=== PATIENT | male | born 1980 | race African-American/Black ===

== ENCOUNTER 2023-07-19 14:44 | Inpatient (IN) | payer MEDICAID ==
[~2023-07-19] VITALS: Ht 190.5 cm; Wt 94.5 kg
[2023-07-19 15:33] LABS: BASOPHILS # (AUTO) 0.1 X10'3 (0-0.2); BASOPHILS % (AUTO) 0.9 % (0-1); EOSINOPHILS # (AUTO) 0.1 X10'3 (0-0.9); EOSINOPHILS % (AUTO) 1.5 % (0-6); HEMATOCRIT 49.4 % (42.0-52.0); HEMOGLOBIN 16.6 g/dl (14.0-17.9); LYMPHOCYTES # (AUTO) 2.6 X10'3 (1.1-4.8); LYMPHOCYTES % (AUTO) 30.9 % (21-51); MEAN CORPUSCULAR HEMOGLOBIN 32.5 PG (27.0-31.0); MEAN CORPUSCULAR HGB CONC 33.7 g/dL (33.0-36.5); MEAN CORPUSCULAR VOLUME 96.7 FL (78-98); MEAN PLATELET VOLUME 10.3 FL (7.4-10.4); MONOCYTES # (AUTO) 0.8 X10'3 (0-0.9); MONOCYTES % (AUTO) 9.6 % (2-12); NEUTROPHILS # (AUTO) 4.8 X10'3 (1.8-7.7); NEUTROPHILS % (AUTO) 57.1 % (42-75); PLATELET COUNT 242 X10'3 (140-440); RED BLOOD COUNT 5.11 X10'6 (4.70-6.10); WHITE BLOOD COUNT 8.4 X10'3 (4.5-11.0)
[2023-07-19 15:52] LABS: ALANINE AMINOTRANSFERASE 34 U/L (12-78); ALBUMIN 4.1 G/DL (3.4-5.0); ALKALINE PHOSPHATASE 93 IU/L (46-116); ANION GAP 6 (8-16); ASPARTATE AMINO TRANSFERASE 35 U/L (10-37); BLOOD UREA NITROGEN 13 MG/DL (7-18); CALCIUM 9.5 MG/DL (8.5-10.1); CHLORIDE 104 MMOL/L (99-107); GLUCOSE 92 MG/DL (70-104); SODIUM 138 MMOL/L (135-145); TOTAL CARBON DIOXIDE 27.9 MMOL/L (24-32); TOTAL PROTEIN 8.1 G/DL (6.4-8.2); eCRCL 90 ML/MIN; eGFR 61 ML/MIN
[2023-07-19 16:00] LABS: ETHANOL < 10 MG/DL (<10); THYROID STIMULATING HORMONE 0.76 ulU/ml (0.34-4.50)
--- NOTE | 2023-07-19 17:05 | NUR ---
pt is back in the lobby
[2023-07-19] MEDS ORDERED: normal saline 1000ml 1,000 ML IV ONE (18:15)
[2023-07-19] MEDS ORDERED: normal saline 1000ML IV soln IVB ONE (18:35)
[2023-07-19] MEDS ORDERED: LORazepam 2 mg/ml vial IV ONE (18:35)
--- NOTE | 2023-07-19 20:00 | NUR ---
Pt transfered from bed 6 to bed 20 in EDOF. Pt arrived sedated with an IV. Site in right arm patent, CDI, without reddness. IV of NS is flowing wide open and to be discontinued when finished.
--- NOTE | 2023-07-19 21:00 | NUR ---
IV of NS finished. Pt asleep, RR even and non labored. Pt in no distress. Monitor for safety. Addendum: 07/20/23 at 0546 by IVANA IV removed with catheter intact.
--- NOTE | 2023-07-19 22:59 | NUR ---
Pt asleep, in no distress. Monitor for safety.
--- NOTE | 2023-07-20 00:06 | NUR ---
Pt is asleep on his left side. RR even and unlabored. Pt in no distress, monitor for safety.
--- NOTE | 2023-07-20 01:59 | NUR ---
Pt asleep, in no distress. Monitor for safety.
--- NOTE | 2023-07-20 04:00 | NUR ---
Pt asleep, in no distress. Monitor for safety.
--- NOTE | 2023-07-20 05:47 | NUR ---
Pt asleep, RR even and pt in NAD
--- NOTE | 2023-07-20 07:01 | NUR ---
Patient sleeping supine. No distress observed. Continue to monitor.
--- NOTE | 2023-07-20 08:20 | NUR ---
Patient's breakfast at bedside. Patient continues to sleep. No distress observed. Continue to monitor.
--- NOTE | 2023-07-20 10:11 | NUR ---
Patient eating his breakfast. No distress observed. Continue to monitor.
--- NOTE | 2023-07-20 12:25 | NUR ---
Lunch at bedside. Patient continues to sleep. No distress observed. Continue to monitor.
--- NOTE | 2023-07-20 13:00 | NUR ---
RN spoke to patient who stated he is feeling suicidal. Patient would not give details but reiterated that he was feeling suicidal. Continue to monitor.
[2023-07-20 13:25] LABS: URINE AMPHETAMINE SCREEN POSITIVE (Neg); URINE BARBITUATE SCREEN NEGATIVE (Neg); URINE BENZODIAZEPINES SCREEN NEGATIVE (Neg); URINE CANNABINOID SCREEN NEGATIVE (Neg); URINE COCAINE SCREEN NEGATIVE (Neg); URINE METHADONE SCREEN NEGATIVE (Neg); URINE OPIATE SCREEN NEGATIVE (Neg); URINE PHENCYCLIDINE SCREEN NEGATIVE (Neg)
--- NOTE | 2023-07-20 13:36 | NUR ---
[facility]ACK[facility] FAXED .
--- NOTE | 2023-07-20 13:50 | NUR ---
ELIDA, Kalie, evaluating patient. No distress observed. Continue to monitor.
--- NOTE | 2023-07-20 19:19 | NUR ---
The patient has been quietly laying on his bed. He did answer questions but did not open his eyes or change his position in bed. He did endorse suicidal thoughts. He stated that he has been hospitalized several times in the past for anxiety/depression. He stated that he was aware that he is on a 5150 hold and that he would be transferred to the mental health unit in the morning. He denies auditory hallucinations. When asked about paranoia he hesitated then stated "no I just feel anxious"
--- NOTE | 2023-07-20 21:00 | NUR ---
The patient appears to be sleeping
--- NOTE | 2023-07-20 23:00 | NUR ---
The patient appears to be sleeping
--- NOTE | 2023-07-21 00:56 | NUR ---
The patient appears to be sleeping
--- NOTE | 2023-07-21 02:23 | NUR ---
The patient appears to be sleeping
--- NOTE | 2023-07-21 02:28 | NUR ---
The patient appears to be sleeping
--- NOTE | 2023-07-21 05:46 | NUR ---
The patient appears to be sleeping
--- NOTE | 2023-07-21 07:03 | NUR ---
received Pt in bed sleeping w/o distress at the beginning of this shift. Will continue to monitor.
--- NOTE | 2023-07-21 07:42 | NUR ---
SPOKE WITH SHARON AT [facility], THEY ARE AWARE [facility] HAS ACCEPTED PATIENT. JODY AT [facility] GAVE PREMISSION TO PLACE PATIENT AT [facility].
--- NOTE | 2023-07-21 09:04 | NUR ---
Pt woke and ate breakfast and used bathroom. He returned to bed where he appears to be sleeping.
--- NOTE | 2023-07-21 11:12 | NUR ---
Pt appears to be sleeping w/o difficulty at this time.
--- NOTE | 2023-07-21 13:18 | NUR ---
Pt woke and ate lunch. When spoken to, he was polite. This RN explained that he was accepted to [facility], but staffing is preventing his admission for a bit. Pt appreciative of explanation and returned to resting/sleeping.
--- NOTE | 2023-07-21 15:25 | NUR ---
Pt awake in bed and reporting he is not having MH issues anymore and discussed with this RN the 5150 hold time frames and process. Pt remains accepted at [facility] and awaits transfer.
--- NOTE | 2023-07-21 17:34 | NUR ---
Pt awake and pleasant and eating dinner at this time. Pt reports that "[place] is interesting but not for me". He wants to return to [place].
--- NOTE | 2023-07-21 18:59 | NUR ---
The patient is awake and watching TV. He is pleasant and calm. He stated he is feeling better. He denies that he is suicidal. He denies anxiety. He stated that he would like to be discharged to return to [place]. He is aware that he is on a 5150. Physical problems denied. He denies psychosis/paranoia.
--- NOTE | 2023-07-21 19:04 | NUR ---
Spoke with [facility] charge and they are not yet able to confirm the patient will be transferred this evening. The patient is aware.
--- NOTE | 2023-07-21 20:47 | NUR ---
The patient is watching TV.
--- NOTE | 2023-07-21 23:08 | NUR ---
The patient appears to be sleeping
--- NOTE | 2023-07-22 00:55 | NUR ---
The patient appears to be sleeping
--- NOTE | 2023-07-22 03:06 | NUR ---
The patient appears to be sleeping but restless at times
--- NOTE | 2023-07-22 05:01 | NUR ---
The patient appears to be sleeping
--- NOTE | 2023-07-22 07:25 | NUR ---
RECEIVED REPORT. PT SLEEPING, EVEN RESPS, IN NAD.
--- NOTE | 2023-07-22 09:17 | NUR ---
PT WENT TO FLOOR ESCORTED BY KRISTIN ALLAN AND . PT WAS CALM AND COOPERATIVE THROUGHOUT MY INTERACTION WITH HIM. PT ATE 100% OF AM MEAL.
[2023-07-22] MEDS ORDERED: magnesium hydroxide 30ml (MOM) UD suspension PO PRN (09:40)
[2023-07-22] MEDS ORDERED: NICOTINE POLACRILEX 2 MG LOZENGE BC PRN (09:40)
[2023-07-22] MEDS: nicotine 7mg patch - 24hr TD SCH (09:40)
[2023-07-22] MEDS ORDERED: loperamide 2mg capsule PO PRN (09:40)
[2023-07-22] MEDS ORDERED: mag hydrox/Alum hydrox/simeth 30ml oral suspension PO PRN (09:40)
[2023-07-22] MEDS ORDERED: acetaminophen 325mg tablet PO PRN ×2 (09:40)
[2023-07-22 09:43] VITALS: BP 115/76; PULSE 87; RESP 12; TEMP 98; O2SAT 98
[2023-07-22 10:00] VITALS: RESP 12; O2SAT 98
--- NOTE | 2023-07-22 11:40 | NUR ---
Admit note: Pt admitted to [facility] today on 5150 for DTS from our ER at 0920. Pt reports feeling "Overwhelmed, anxious, upset" and reports has a plan for suicide "I dont like saying it out loud." He's not willing to safety plan. Pt has history of depression and anxiety. Addendum: 07/22/23 at 1500 by Leslee Evans RN Pt. presents as very fatigued with a blunted affect and naps throughout the shift. He was cooperative with the admission process, however proceeded to lay with his eyes closed responding with mostly yes/no answers to direct questions only. Pt. reports S/I, but denies any current plan. He is able to contract for safety while on the unit and scores as a moderate risk on the [place] Suicide Risk Assessment, this was endorsed to YENY Ricks and [place] 15min safety checks were ordered. Pt. does report a history of an overdose attempt when he was [age] years of age and a family history of his uncle committing suicide.
[2023-07-22] MEDS ORDERED: NO HOME MEDS (11:49)
[2023-07-22 19:00] VITALS: RESP 14; O2SAT 98
[2023-07-22 20:00] VITALS: BP 103/65; PULSE 75; RESP 14; TEMP 98; O2SAT 98
[2023-07-22] MEDS ORDERED: hydrOXYzine 25 MG tablet PO PRN (21:05)
[2023-07-22] MEDS: prazosin 1mg capsule PO SCH (21:06)
--- NOTE | 2023-07-23 03:51 | NUR ---
NURSING PROGRESS NOTE: Problem: Pt admitted to [facility] today on 5150 for DTS from our ER at 0920. Pt reports feeling "Overwhelmed, anxious, upset" and reports has a plan for suicide "I dont like saying it out loud." He's not willing to safety plan. Pt has history of depression and anxiety. Response: Pt. received sleeping in bed at change of shift. He slept through evening snack. Pt. remained asleep until 0000 when he walked to the nurse station and asked for a snack. Pt. is pleasant and cooperative. While walking down to the nutrition room with this flex o writer operator, pt. became upset by an intrusive male peer. Pt. returned to his room and ate snack. Pt. denies SI/HI/AH/VH and anxiety. Observed and appears sleeping without difficulty. Minipress held d/t low systolic of 103.
[2023-07-23 07:00] VITALS: RESP 16; O2SAT 98
[2023-07-23 08:00] VITALS: BP 109/73; PULSE 70; RESP 16; TEMP 97.7; O2SAT 98
[2023-07-23] MEDS ORDERED: sertraline 50mg tablet PO SCH (08:00)
[2023-07-23] MEDS: nicotine 7mg patch - 24hr TD SCH (08:00)
--- NOTE | 2023-07-23 09:40 | NUR ---
Malnutrition consult: Pt reports 2-13 lb wt loss with decreased appetite/PO intake per malnutrition risk screen with RN. No wt hx in EMR though current weight is 106% IBW. Pt eating well on a regular diet, documented with 100% PO intake. Per H&P pt reports eating good. No documented edema or decrease in muscle strength. Pt currently lacks a minimum of two criteria for malnutrition. Will continue to follow. Addendum: 07/23/23 at [address] Amended: Links added.
[2023-07-23 09:49] LABS: HEMOGLOBIN A1C 4.6 % (4.5-6.2)
[2023-07-23 10:19] LABS: CHOL/HDL RATIO 4.2 (0.00-4.99); CHOLESTEROL 227 MG/DL (0-200); HDL CHOLESTEROL 54 MG/DL (35-60); LDL CHOLESTEROL 148 MG/DL (50-100); TRIGLYCERIDES 118 MG/DL (20-135)
--- NOTE | 2023-07-23 14:38 | NUR ---
DISCHARGE-[place] BUS DEPARTS AT 4:40 AM SAT 07/24/23 Manuel has a [employer] bus ticket to [place]. Bus departs at 4:40 AM, he can board 15 min prior. He is returning home to [place]. AMA De Los Santos
--- NOTE | 2023-07-23 15:40 | NUR ---
Nursing Progress Note: Problem : Pt admitted to [facility] today on 5150 for DTS from our ER at 0920. Pt reports feeling "Overwhelmed, anxious, upset" and reports has a plan for suicide "I dont like saying it out loud." He's not willing to safety plan. Pt has history of depression and anxiety. Interventions : Maintained a safe and supportive environment, ensured contract for safety, provided clear and simple instructions, provided active listening and positive encouragement, and maintained Q 15min safety checks. Response : Received pt. sleeping in bed at the beginning of the shift, he was awoken to attend breakfast and afterwards retreated back to bed where he continued to isolate throughout much of the shift napping intermittently. Pt. presents as withdrawn from others, but was observed to be sitting up in the hallway in the afternoon. He reported some anxiety, and PRN Atarax was administered with effectiveness. 1:1 was completed and pt. denies S/I, H/I, A/V/QIU, and no delusional statements were made. Pt will be taking a bus back to his place of residence in the morning. Staff is charging his cell phone for him at this time and will place it back in the safe when finish. Plan : Pt. requires a safe and supportive environment.
--- NOTE | 2023-07-23 16:16 | NUR ---
MRSA positive: Lab called. Pt is MRSA positive. Pt instructed on hand washing.
--- NOTE | 2023-07-23 16:20 | NUR ---
MRSA: While instructing pt on his MRSA diagnosis in his room,pt had many questions. While attempting to answer pts questions, pt became upset and condescending over not having enough information for him. While attempting to look up information about MRSA for the pt, he came to the nurse station accusing nurse of violating his HIPPA rights speaking to him in his room instead of a private area. Pt continues to escalate stating his rights were violated. Gave pt phone number to pt rights advocate and a phone. Pt given information on MRSA and large packet on HIPPA rights and violations.
[2023-07-23 19:00] VITALS: RESP 20; O2SAT 97
[2023-07-23 19:45] VITALS: BP 119/74; PULSE 99; RESP 20; TEMP 98.7; O2SAT 97
[2023-07-23] MEDS: prazosin 1mg capsule PO SCH (21:00)
[2023-07-23] MEDS ORDERED: HYDR-3686 PO (21:57)
[2023-07-23] MEDS ORDERED: NICO-630 TD (21:57)
[2023-07-23] MEDS ORDERED: PRAZ1CAP5 PO (21:57)
[2023-07-23] MEDS ORDERED: SERT-433 PO (21:57)
[2023-07-23] MEDS ORDERED: NICO-907 BC (21:57)
--- NOTE | 2023-07-24 03:58 | NUR ---
DISCHARGE NOTE pt. discharged at [address] [facility] Pt. escorted by staff and security. Pt. in stable condition. Pt. has all belongings and discharge instructions.
== END 2023-07-24 03:50 | disposition home or self-care (01) | DRG 751 ==
LOC: ER 14:45 → ADULT MH 07-20 17:15
PROVIDERS: ADMIT Psychiatry & Neurology Psychiatry; ATTEND Psychiatry & Neurology Psychiatry
DX: F33.2 Major depressive disorder, recurrent severe without psychotic features (principal); R45.851 Suicidal ideations; F17.210 Nicotine dependence, cigarettes, uncomplicated; F41.9 Anxiety disorder, unspecified; F15.90 Other stimulant use, unspecified, uncomplicated; F51.5 Nightmare disorder; Z20.822 Contact with and (suspected) exposure to COVID-19
CPT/HCPCS: 36415; 80053; 80061; 80305; 80320; 83036; 84443; 85025; 87081; 87811; 96361; 96374; 99285; J2060; J7030; Q0177